=== PATIENT | male | born 1955 | race Caucasian/White ===

== ENCOUNTER 2023-12-31 09:11 | Day surgery (SDC) | payer MEDICARE, OTHER ==
[~2023-12-31 09:11] MED LIST: Acetaminophen 325 MG Tab PO PRN; Acetaminophen/Codeine 300-30 MG Tab PO PRN; Ondansetron 4 MG/2 ML SDV IVPUSH PRN; Sodium Chloride 0.9% 10 ML Syringe FLUSH PRN
[2023-12-31] MEDS: Proparacaine 0.5% Ophth Soln 15 ML Bottle EYELF ONE ×2 (09:46→10:10)
[2023-12-31] MEDS: Moxifloxacin 0.5% Ophth Soln 3 ML Bottle EYELF ONE (09:47)
[2023-12-31] MEDS: Povidone-Iodine 5% Sterile Ophth Soln 30 ML Bottle EYELF ONE ×2 (09:49→10:10)
[2023-12-31] MEDS: Tropicamide 1% Ophth Soln 15 ML Bottle EYELF ONE (09:50)
[2023-12-31] MEDS: Phenylephrine 10% Ophth Soln 5 ML Bot EYELF ONE (09:51)
[2023-12-31] MEDS: Cataract Ophth Solution EYELF ONE (09:53)
[2023-12-31] MEDS: Timolol Maleate 0.5% Ophth Soln 5 ML Bottle EYELF ONE (09:54)
[2023-12-31] MEDS: Apraclonidine 0.5% Ophth Soln 5 ML Bot EYELF ONE (10:10)
[2023-12-31] MEDS: Dexamethasone/Neomycin/Polymyxin B Ophth Oint 3.5 GM Tube EYELF ONE (10:11)
[2023-12-31] MEDS: Diclofenac Sodium 0.1% Ophth Soln 5 ML Bottle EYELF ONE (10:11)
[2023-12-31] MEDS: Vancomycin 500 MG SDV EYELF ONE (10:11)
[2023-12-31] MEDS: Lidocaine 1% 30 ML SDV INJECT ONE (10:11)
[2023-12-31 11:08] VITALS: BP 149/78
[2023-12-31 11:09] VITALS: PULSE 78
== END 2023-12-31 10:50 | disposition home or self-care (01) ==
LOC: DL.SDS 09:11
PROVIDERS: ATTEND Ophthalmology
DX: H26.8 Other specified cataract (principal); M19.019 Primary osteoarthritis, unspecified shoulder; N40.1 Benign prostatic hyperplasia with lower urinary tract symptoms; R35.1 Nocturia; E78.00 Pure hypercholesterolemia, unspecified; F17.200 Nicotine dependence, unspecified, uncomplicated; Z79.899 Other long term (current) drug therapy
CPT/HCPCS: 66984; A9270; J3370; J3490

== ENCOUNTER 2024-01-14 09:00 | Day surgery (SDC) | payer MEDICARE, OTHER ==
[2024-01-14] MEDS: Povidone-Iodine 5% Sterile Ophth Soln 30 ML Bottle EYERT ONE ×3 (06:51→09:40)
[2024-01-14] MEDS: Proparacaine 0.5% Ophth Soln 15 ML Bottle EYERT ONE ×3 (06:51→09:39)
[2024-01-14] MEDS: Lidocaine 1% 30 ML SDV ONE ×3 (06:53→09:55)
[2024-01-14] MEDS: Balanced Salt Solution Ophth Irrig 500 ML Bottle IOCULAR ONE ×3 (06:54→09:54)
[2024-01-14] MEDS: Vancomycin 500 MG SDV EYERT ONE ×3 (06:57→09:54)
[2024-01-14] MEDS: Apraclonidine 0.5% Ophth Soln 5 ML Bot EYERT ONE ×2 (06:58→09:56)
[2024-01-14] MEDS: Chondroitin Sulfate/Hyaluronate Sodium Ophth Inj 0.75 ML Syringe EYERT ONE ×3 (06:58→09:54)
[2024-01-14] MEDS: Diclofenac Sodium 0.1% Ophth Soln 5 ML Bottle EYERT ONE ×2 (06:59→09:56)
[2024-01-14] MEDS: Dexamethasone/Neomycin/Polymyxin B Ophth Oint 3.5 GM Tube EYERT ONE ×2 (07:00→09:56)
[~2024-01-14 09:00] MED LIST changes: -Sodium Chloride 0.9% 10 ML Syringe FLUSH PRN
[2024-01-14] MEDS: Tropicamide 1% Ophth Soln 15 ML Bottle EYERT ONE (09:11)
[2024-01-14] MEDS: Moxifloxacin 0.5% Ophth Soln 3 ML Bottle EYERT ONE (09:11)
[2024-01-14] MEDS: Sodium Chloride 0.9% 10 ML Syringe FLUSH PRN (09:11)
[2024-01-14] MEDS: Phenylephrine 10% Ophth Soln 5 ML Bot EYERT ONE (09:12)
[2024-01-14] MEDS: Timolol Maleate 0.5% Ophth Soln 5 ML Bottle EYERT ONE (09:12)
[2024-01-14] MEDS: Cataract Ophth Solution EYERT ONE (09:12)
[2024-01-14 10:28] VITALS: BP 138/68; PULSE 76
== END 2024-01-14 10:21 | disposition home or self-care (01) ==
LOC: DL.SDS 09:00
PROVIDERS: ATTEND Ophthalmology
DX: H25.811 Combined forms of age-related cataract, right eye (principal); N40.1 Benign prostatic hyperplasia with lower urinary tract symptoms; E78.00 Pure hypercholesterolemia, unspecified; F17.200 Nicotine dependence, unspecified, uncomplicated; Z79.899 Other long term (current) drug therapy
CPT/HCPCS: 66984; A9270; J3370; 00142; J3490